=== PATIENT | male | born 1955 | race Caucasian/White ===

== ENCOUNTER → 2021-05-28 | Outpatient (CLI) | payer MEDICARE ==
--- NOTE | 2021-05-28 22:31 | CT ---
EXAMINATION TYPE: CT cervical spine wo con CT DLP: 905 mGycm, Automated exposure control for dose reduction was used. DATE OF EXAM: 05/28/2021 4:36 PM COMPARISON: None. CLINICAL INDICATION:Male, 65 years old with history of M54.2 Cervicalgia, M54.40 Low back pain, Cervi calgia, pain in shoulders running down arms TECHNIQUE: Axial CT images from the skull base to the inferior aspect of T2 we obtained without intra venous contrast. Coronal and sagittal reformatted images were also reviewed. FINDINGS: Fracture: None. Osseous structures: Multilevel disc degeneration changes throughout the spine. These are most pronoun felisa at C5-C6 and C6-C7. Scattered uncovertebral joint arthropathy is present as well as facet joint a rthropathy with varying degrees of mild neural foraminal stenosis. Vertebral alignment: Within normal limits. Spinal canal/Neural Foramina: No evidence of significant spinal canal narrowing. No evidence of signi ficant neural foramina narrowing. Neck soft tissues: Prevertebral soft tissues are within normal limits. Other: The airway is patent. Mild paraseptal emphysema changes. Few scattered partially visualized pa cemaker opacities are seen within the right upper lung. Atherosclerosis changes of the visualized art erial vasculature. IMPRESSION: 1. No evidence of cervical spine fracture. 2. Mild multilevel degenerative disc disease. 3. Partially visualized spiculated opacities of the right upper lung. A dedicated CT chest without I V contrast is recommended for further evaluation of lung parenchyma. 4. Mild emphysema changes.
--- NOTE | 2021-05-29 08:14 | XR ---
EXAMINATION TYPE: XR thoracic spine 2V DATE OF EXAM: 05/28/2021 COMPARISON: NONE HISTORY: Chronic lower back pain TECHNIQUE: 3 views submitted FINDINGS: Alignment is anatomic. There is no compression deformities. Multilevel hypertrophic and degenerative disc disease most pronounced in the lower thoracic spine. Appears to be a catheter lead extending of region of the thoracolumbar junction overlying the posterior margin of the soft tissues. Correlate f or positioning. IMPRESSION: 1. Multilevel degenerative disc disease.
--- NOTE | 2021-05-29 08:15 | XR ---
EXAM TYPE: LUMBAR SPINE X RAY SERIES COMPARISON: NONE HISTORY: Pain TECHNIQUE: 4 views are submitted. FINDINGS: A postsurgical changes involving the lower lumbar spine. No sizable anterolisthesis. Chronic appearin g compression fracture L3 superior endplate. Diffuse osteopenia and hypertrophic changes of the verte bral column. Appears to be a lead or device overlying the posterior margin of the posterior elements of the thoracolumbar junction. Vascular calcifications are seen. There is a slight retrolisthesis of L3 relative to L4 and L2-L3 relative to L1. Multilevel facet arthropathy. IMPRESSION: 1. Postsurgical changes. Suspect foraminal encroachment at levels L3-S1. 2. Chronic appearing compression fracture L3. 3. Retrolisthesis of L3 relative to L4 and L2 relative to L3.
--- NOTE | 2021-05-29 08:29 | XR ---
EXAMINATION TYPE: XR cervical spine comp DATE OF EXAM: 05/28/2021 COMPARISON: NONE HISTORY: Pain TECHNIQUE: Four views are submitted. FINDINGS: The odontoid is intact. There are no compression deformities. The prevertebral soft tissue structur es are within normal limits. Severe degenerative disc disease C5-6 and C6-C7 with anterior hypertrop hic spurring. Foraminal encroachment at these levels. Persistent vague possibly spiculated density in right upper lobe. IMPRESSION: 1. Multilevel degenerative disc disease and facet arthropathy without foraminal encroachment. 2. There is a vague right upper lobe lung density which should be evaluated with CT scan of chest.
== END | disposition home or self-care (01) ==
LOC: RADCTMAIN 16:10
PROVIDERS: ATTEND Psychiatry & Neurology Neurology
DX: M51.36 Other intervertebral disc degeneration, lumbar region (principal); M50.30 Other cervical disc degeneration, unspecified cervical region; Z98.1 Arthrodesis status; G89.18 Other acute postprocedural pain
CPT/HCPCS: 72050; 72070; 72110; 72125

== ENCOUNTER → 2021-06-29 | Outpatient (CLI) | payer MEDICARE ==
--- NOTE | 2021-06-29 14:04 | CT ---
EXAMINATION TYPE: CT chest wo con DATE OF EXAM: 06/29/2021 COMPARISON: None HISTORY: 65-year-old male R91.1, solitary pulmonary nodule. Patient had an abnormal lung finding on p revious study. Patient is a smoker TECHNIQUE: Contiguous axial scanning of the chest without IV contrast. Coronal and sagittal reconstru ctions performed. CT DLP: 611 mGycm Automated exposure control for dose reduction was used. FINDINGS: Heart normal size without pericardial effusion. Extensive three-vessel coronary artery calcifications are present and there are marker for coronary artery disease. Ectatic ascending aorta 3.7 cm. Mild atherosclerotic arch calcifications. Bovine configuration to the aortic arch. Mildly enlarged caliber to the main right and left pulmonary arteries measuring up to 2.9 cm suggesti ng underlying pulmonary arterial hypertension. Scattered nonenlarged mediastinal lymph nodes. No thoracic lymphadenopathy by CT size criteria. Mild emphysematous change. Mild patchy groundglass right upper lobe, axial image 17. . Patchy groundg lass right mid lung, axial image 28. Focal airspace disease medial right middle lobe, axial image 39. Mild dependent atelectasis. No pleural effusion. 4 mm peripheral right upper lobe pulmonary nodule, axial image 15 Tiny hiatal hernia. Severe fatty infiltration of the liver. Correlate with LFTs, lipid profile, and p atient risk factors. 1 cm nodule right adrenal gland, axial image 62. Bones: Spinal stimulator array centered along the lower thoracic spinal canal with leads entering thr ough the T11-T12 interlaminar space. IMPRESSION: 1. COPD WITH MILD EMPHYSEMA. PULMONARY ARTERIAL HYPERTENSION. 2. CAD WITH EXTENSIVE THREE-VESSEL CORONARY ARTERY CALCIFICATIONS. 3. AIRSPACE DISEASE SUGGESTING RIGHT MIDDLE LOBE PNEUMONIA. FOLLOW-UP CT AFTER TREATMENT TO ENSURE CL EARANCE. 4. A COUPLE ADDITIONAL SUBTLE GROUNDGLASS AREAS ON THE RIGHT LIKELY ALSO INFECTIOUS/INFLAMMATORY. 5. SIX-MONTH FOLLOW-UP CT FOR THE 4 MM RIGHT UPPER LOBE PULMONARY NODULE. 6. SEVERE HEPATIC STEATOSIS. CORRELATE WITH LFT's, LIPID PROFILE, AND PATIENT RISK FACTORS. 7. A 1 CM RIGHT ADRENAL NODULE SHOULD ALSO BE REASSESSED AT THE 6 MONTH FOLLOW-UP CT. 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
== END | disposition home or self-care (01) ==
LOC: RADCTMAIN 11:04
PROVIDERS: ATTEND Internal Medicine
DX: R91.1 Solitary pulmonary nodule (principal); J43.9 Emphysema, unspecified; I10 Essential (primary) hypertension; K76.0 Fatty (change of) liver, not elsewhere classified
CPT/HCPCS: 71250

== ENCOUNTER → 2022-01-25 | Outpatient (CLI) | payer MEDICARE ==
--- NOTE | 2022-01-25 12:24 | US ---
EXAMINATION TYPE: US carotid duplex BILAT DATE OF EXAM: 01/25/2022 COMPARISON: NONE CLINICAL HISTORY: I65.23 CAROTID STENOSIS. Stenosis TECHNIQUE: Carotid duplex ultrasound examination. Indirect Doppler criteria was utilized. FINDINGS: EXAM MEASUREMENTS: RIGHT: Peak Systolic Velocity (PSV) cm/sec ----- Right CCA: 88.3 ----- Right ICA: 102 ----- Right ECA: 102 ICA/CCA ratio: 1.1 RIGHT: End Diastole cm/sec ----- Right CCA: 13.6 ----- Right ICA: 24 ----- Right ECA: 10.7 LEFT: Peak Systolic Velocity (PSV) cm/sec ----- Left CCA: 97.6 ----- Left ICA: 111 ----- Left ECA: 105 ICA/CCA ratio: 1.1 LEFT: End Diastole cm/sec ----- Left CCA: 20.5 ----- Left ICA: 25.4 ----- Left ECA: 12.3 VERTEBRALS (direction of flow): Right Vertebral: Antegrade Left Vertebral: Antegrade Rhythm: Normal SLIDER ASSEMBLER NOTES: No significant stenosis seen IMPRESSION: Less Than 50% Stenosis Of The Carotid Bifurcations. For Assigning % of Stenosis / Diameter reduction (Estimation based on the indirect measurements of the internal carotid artery velocities (ICA PSV). 1. Normal (no stenosis)=ICA PSV < 125 cm/s: ratio < 2.0: ICA EDV<40 cm/s. 2. Less than 50% stenosis=ICA PSV < 125 cm/s: ratio < 2.0: ICA EDV<40 cm/s. 3. 50 to 69% stenosis=ICA PSV of 125 to 230 cm/s: ration 2.0 ? 4.0: ICA EDV 40-100 cm/s. 4. Greater than 70% stenosis to near occlusion= ICA PSV > 230 cm/s: ratio > 4.0: ICA EDV > 100 cm/s. 5. Near occlusion= ICA PSV velocities may be low or undetectable: variable ratio and ICA EDV. 6. Total occlusion=unable to detect flow.
== END | disposition home or self-care (01) ==
LOC: RADUSWWP 10:48
PROVIDERS: ATTEND Internal Medicine
DX: I25.119 Atherosclerotic heart disease of native coronary artery with unspecified angina pectoris (principal); I73.9 Peripheral vascular disease, unspecified; I65.23 Occlusion and stenosis of bilateral carotid arteries; R91.1 Solitary pulmonary nodule
CPT/HCPCS: 93880; 93922

== ENCOUNTER → 2022-02-02 | Outpatient (CLI) | payer MEDICARE ==
[~2022-02-02] MED LIST: REGADENOSON 0.4 MG/5 ML SYRINGE IV ONE
--- NOTE | 2022-02-02 11:52 | NM ---
EXAMINATION TYPE: NM stress lexiscan cardiolite DATE OF EXAM: 02/02/2022 COMPARISON: NONE HISTORY: Sprain TECHNIQUE: After the intravenous administration of 10.2 mCi Tc 99m Sestamibi - Cardiolite resting SP ECT images acquired 45 minutes post injection. The patient received 0.4mg Lexiscan, 26.2 mCi Tc 99m Sestamibi - Stress images obtained [address] injection FINDINGS: Review of stress and rest SPECT images demonstrates no distinct perfusion abnormality. Gated analysi s shows normal wall motion with an estimated left ventricular ejection fraction of 51 %. IMPRESSION: No scintigraphic evidence for reversible ischemia.
--- NOTE | 2022-02-02 11:58 | CA ---
Lexiscan Nuclear Stress Test Report Name: Dio Garcia Exam Date: 02/02/2022 10:00 Exam Location: [facility] Ht (in): 69 Wt (lb): 250 BSA: 2.27 Ordering Phys: Marleny Longoria MD Referring Phys: MARLENY LONGORIA,, Technologist: Shiraz Clarke Age: 66 Gender: M : 1955 Procedure CPT: Indications: I65.23 OCCLUSION AND STENOSIS OF BILATERAL CAROTID ICD-10 Codes: Patient History: CHEST PAIN, HTN, DIABETES, ELEVATED CHOLESTEROL, FAMILY HX OF HEART DISEASE, CURRENT SMOKER (1.5 PPD X 40+ YEARS) PRIOR HEART ATTACK, CARDIAC CATH WITH STENT, COPD Medications: Meds past 24 hrs: Pretest Chest Pain: STRESS TEST Lexiscan Protocol Exercise Duration (min:sec): 02:[address] Depressions (mm): Angina Score: Gonzalez Score: Resting HR (bpm): 71 Peak HR (bpm): 87 Resting BP (mmHg): 124 / 75 Peak BP (mmHg): 124 / 75 MPHR: 156 Target HR: 133 % MPHR: 56 METS: 1.0 Total Dose: Peak Dose: Atropine: Double Product: 93221 BP Response: Stress Termination: Stress Symptoms: Stress Summary: ECG ANALYSIS Resting ECG: Stress ECG: CONCLUSIONS Non-diagnostic electrocardiogram stress testing Please follow-up on the Cardiolite portion from the radiology department Dr. Ron Lakhani MD (Electronically Signed) Final Date: 02 February 2022 11:57
== END | disposition home or self-care (01) ==
LOC: RADNMMAIN 08:05
PROVIDERS: ATTEND Internal Medicine
DX: I25.119 Atherosclerotic heart disease of native coronary artery with unspecified angina pectoris (principal)
CPT/HCPCS: 93017; 78452; A9500; J2785

== ENCOUNTER → 2023-01-25 | Outpatient (CLI) | payer MEDICARE ==
--- NOTE | 2023-01-28 17:42 | CT ---
EXAMINATION TYPE: CT thor lumbar spine wo con CT DLP: 3250.20 mGycm, Automated exposure control for dose reduction was used. DATE OF EXAM: 01/25/2023 6:22 PM CLINICAL INDICATION:Male, 67 years old with history of M47.817; low/middle back pain, hx of 10spine s xs. COMPARISON: CT chest 06/29/2022. TECHNIQUE: Axial images of the thoracic and lumbar spine were obtained without contrast. Coronal and sagittal reformats were performed. 3-D reformats of the bones were created on a separate workstation and submitted for review. CT Contrast: Contrast used: mL of , none. Oral contrast used: none. FINDINGS: Thoracic: The thoracic vertebral bodies have preserved heights and alignment. Intervertebral discs a nd osseous structures have normal appearance. I do not see any evidence of extradural defects nor significant spinal canal narrowing at any thoraci c vertebral body level. Lumbar: Alignment: There are 5 lumbar type vertebral bodies within normal alignment. Bone: No evidence of fracture is identified. Multilevel degeneration changes are seen throughout the spine. Findings worse in the lower cervical spine at C6-C7 adjoining endplates with sclerosis and os teophyte formation. Scattered osteophyte formation facet joint arthropathy are present. There is fixa tion hardware at L4-L5 and S1 hardware appears intact. Surgical changes with laminectomy at L4 and L5 present. There is a nerve stimulator device with leads terminating in the thecal sac. Subcutaneous f luid collection near the right low back compatible with likely seroma measuring up to 4.6 x 2.8 x 4.3 cm. Discs: T12-L1: No spinal canal or neural foraminal stenosis is identified. L1-L2: No spinal canal or neural foraminal stenosis is identified. L2-L3: No spinal canal or neural foraminal stenosis is identified. L3-L4: No spinal canal or neural foraminal stenosis is identified. L4-L5: Postsurgical changes streak artifact. The spinal canal is patent there is moderate bilateral neural foraminal stenosis. L5-S1: Postsurgical changes with streak artifact. There is moderate bilateral neural foraminal stenos is. The spinal canal appears patent. Other: Moderate severe atherosclerosis of the arterial vasculature. Mild hepatic steatosis. IMPRESSION: Multilevel mild to moderate degeneration changes. No evidence for fracture. Postsurgical changes in t he lower spine with hardware intact. There is at least moderate bilateral neural foraminal stenosis a t L4-L5 and L5-S1. No evidence for significant spinal canal stenosis.
== END | disposition home or self-care (01) ==
LOC: RADCTMAIN 16:19
PROVIDERS: ATTEND Psychiatry & Neurology Neurology
DX: Z01.818 Encounter for other preprocedural examination (principal); M51.15 Intervertebral disc disorders with radiculopathy, thoracolumbar region; M99.73 Connective tissue and disc stenosis of intervertebral foramina of lumbar region; M47.27 Other spondylosis with radiculopathy, lumbosacral region; R20.9 Unspecified disturbances of skin sensation; Z98.1 Arthrodesis status
CPT/HCPCS: 72128; 72131